=== PATIENT | male | born 1960 | race Caucasian/White ===

== ENCOUNTER 2016-06-01 10:38 | Outpatient (CLI) | payer OTHER ==
--- NOTE | 2016-06-01 11:07 | DIAGNOSTIC IMAGING REPORT ---
PROCEDURE: XR CHEST 2 VIEW INDICATION: Preop, cough. Initial encounter TECHNIQUE: PA and lateral view. COMPARISON: Chest x-ray 02/02/2013 FINDINGS: Stable mild left basilar scarring. Right lung is clear. Cardiovascular structures are normal. Bony thorax is unremarkable. No significant interval change. IMPRESSION: 1. No acute changes 2. Mild left basilar scarring
[2016-06-15] MEDS ORDERED: LISINOPRIL40 MG PO (12:59)
[2016-06-15] MEDS ORDERED: HYDROCHLOROTHIA25 MG PO (12:59)
[2016-06-15] MEDS ORDERED: CITALOPRAM HYDR40 MG PO (13:00)
[2016-06-15] MEDS ORDERED: CARVEDILOL12.5 MG PO (13:01)
[2016-06-15] MEDS ORDERED: AMLODIPINE BESY10 MG PO (13:02)
== END 2016-06-01 23:00 ==
LOC: RT SRH 10:38
DX: Z01.818 Encounter for other preprocedural examination (principal); Z01.810 Encounter for preprocedural cardiovascular examination; M19.011 Primary osteoarthritis, right shoulder

== ENCOUNTER 2016-06-20 14:42 | Outpatient (CLI) | payer OTHER ==
[~2016-06-20 14:42] MED LIST: AMLODIPINE BESY10 MG PO; CARVEDILOL12.5 MG PO; CITALOPRAM HYDR40 MG PO; HYDROCHLOROTHIA25 MG PO; LISINOPRIL40 MG PO
[2016-06-21] MEDS ORDERED: PERCOCET1 TA1 PO (11:20)
== END 2016-06-20 23:00 ==
LOC: LAB SRH 14:42
DX: M19.011 Primary osteoarthritis, right shoulder (principal)
CPT/HCPCS: 90001; 90004; 90074; 90100; 90155; 91004; 94060; 95059; 95150

== ENCOUNTER 2016-06-21 06:16 | Day surgery (SDC) | payer OTHER ==
--- NOTE | 2016-05-12 10:31 | HISTORY AND PHYSICAL ---
ADMITTED: 06/21/2016 CHIEF COMPLAINT: Right shoulder pain. HISTORY OF PRESENT ILLNESS: The patient has had pain and stiffness in the right shoulder, which has become worse over the last 5 years. He has actually had pain for many years, but it has become worse over the last 5 years. He has gotten only minimal relief with Advil and no relief at all with physical therapy. He has a CT and MRI, which show him to have at least a partial if not complete tear of the supraspinatus muscle insertion and complete loss of the glenohumeral joint space and also severe arthritis involving the acromioclavicular joint. He is being admitted for right shoulder hemiarthroplasty, rotator cuff repair and a distal clavicle resection. He also suffers from depression and hypertension. MEDICAL/SURGICAL HISTORY: Past history is positive in that he suffers from obesity as well. MEDICATIONS: 1. Currently are lisinopril 40 mg a day. 2. Hydrochlorothiazide 25 mg daily. 3. Citalopram 40 mg daily. 4. Carvedilol 12.5 daily. 5. Amlodipine 10 mg today. SOCIAL HISTORY: He is a former smoker, but has quit and is not smoking at present and drinks no alcohol. FAMILY HISTORY: He has a positive family history for hypertension in both his mother and his sister. PHYSICAL EXAMINATION: HEENT: His head is normocephalic and atraumatic. His eyes are clear. His hearing is grossly normal. CHEST: Symmetrical. HEART AND LUNG: Will do when he comes into the office. ABDOMEN: Obese. EXTREMITIES: For the shoulder exam, will refer you to my previous dictations but he does have pain with any shoulder motion and restriction of his range of motion. He has crepitation with motion. IMPRESSION: 1. Arthritis of the shoulder joint with at least partial if not full-thickness rotator cuff tear and acromioclavicular arthritis. PLAN: For him to have a hemiarthroplasty of the shoulder. I have had a long discussion with him about this, that he will likely not get complete relief of his pain with the surgery and there is a very significant risk that he will have some continued chronic pain despite the operation because of the damage to the glenoid, but he is still relatively young and wants to work hard and he is not really a candidate for glenoid replacement. The hemiarthroplasty hopefully will give him significant pain relief and be durable enough that he can work with his arm without significant restrictions. He understands this. I also explained where the incision would be, how the surgery would be done, the risk of failure, of dislocation, of continued pain, of infection, of weakness, and anesthesia complications have been explained to him and he understands the accepts and will plan to do the surgery then 05/31/2016 barring unforeseen complications or problem.
--- NOTE | 2016-06-01 10:23 | HISTORY AND PHYSICAL ---
ADMITTED: 06/21/2016 CHIEF COMPLAINT: 1. Right shoulder pain HISTORY OF PRESENT ILLNESS: The history is as noted in our clinic notes, which should be in the record there, but he has had increasing pain and decreasing movement in the right should over a prolonged period of time. He has had physical therapy. He has taken anti-inflammatories, had injections, none of which really relieved the pain. He does have a history of what sounds like a subluxation, maybe dislocation episode when he was 20 or 21 years old. He said he just grabbed onto something, felt his shoulder pop in and out, and says it all happened within about a second. Other than that, he has not had any instability of it. He does work hard and would like to continue to be able to use the arm pretty much without restriction. He has had a CT and MRI which showed him to have loss of the glenohumeral joint space. He has at least partial and maybe small full-thickness tear of the supraspinatus tendon, with a type 2-3 acromion, and he is being admitted for a right shoulder hemiarthroplasty, repair of the rotator cuff tear and acromioplasty. I had a long discussion with him on several occasions about this. It is not likely it is going to completely relieve his pain. There is just no satisfactory replacement or solution for someone whose glenoid is worn out, and I have explained this to him, that unfortunately I do not have a way to resolve the glenoid problem. The humeral head, though, looks to be worn out, from his studies, and we could replace that, probably give him some relief of his pain, and repair the rotator cuff and remove the acromial prominence that likely would help his pain as well. It is not expected that he is going to be completely normal, but hopefully would be much improved. I have also talked to him about the risks of infection, of dislocation, of problems with healing and stiffness and continued pain. He understands the surgery is not guaranteed, but would like to proceed. We are planning then for right shoulder hemiarthroplasty, rotator cuff repair and acromioplasty. We will do that until 06/21/2016, barring unforeseen complication or problem. MEDICAL/SURGICAL HISTORY: His past history is positive in that he suffers from hypertension and depression and obesity. He denies any other serious medical illness. MEDICATIONS: 1. Amlodipine 10 mg daily. 2. Carvedilol 12.5 mg twice daily. 3. Citalopram 40 mg a day. 4. Hydrochlorothiazide 50 mg daily. 5. Lisinopril 40 mg daily. ALLERGIES: 1. NO KNOWN ALLERGIES. SOCIAL HISTORY: He does have an ancient history of tobacco use as well, but he said he quit smoking cigarettes in 1984. FAMILY HISTORY: Positive for hypertension in both mother and sister. REVIEW OF SYSTEMS: Other than the shoulder pain and some back pain is negative. He denies any seizures or loss of consciousness, problems with balance, hearing or vision. He has not had any cough, congestion, fever, chills, chest pain, shortness of breath. No nausea, vomiting, diarrhea. No blood in his stools or urine. No dysuria. PHYSICAL EXAMINATION: HEENT: Head normocephalic and atraumatic. His eyes are clear. His hearing is grossly normal. There is no drainage from the ear canals. The face is symmetrical. NECK: Without jugular venous distention. CHEST: Symmetrical. HEART: Regular rate and rhythm, without murmurs. LUNGS: Clear to auscultation. ABDOMEN: Markedly obese. EXTREMITIES: Again, I will refer you to my clinic notes, but he does have decreased range of motion, and there is pain and crepitation with range of motion. LAB/IMAGING: His studies do show him to have the significant osteoarthritis of the shoulder, as noted above. PLAN: The plan will be for surgery as discussed in the history of present illness, and we will see him on 06/21/2016 for the surgery.
[~2016-06-21] VITALS: Ht 188 cm; Wt 150.8 kg
--- NOTE | 2016-06-21 11:12 | Operative Report ---
Operative Report Date of Surgery: 06-21-16 Preoperate Diagnosis: Arthritis right shoulder with impingement and partial RCT. Postoperative Diagnosis: Arthritis right shoulder Surgeon: Buddy Dunbar MD Procedure Performed: Right shoulder hemiarthroplasty Anesthesia: GA Indications: Right shoulder arthritis Surgical Technique: Right shoulder hemiarthroplasty
--- NOTE | 2016-06-21 11:15 | Postoperative Progress Note ---
Postop Progress Note Preoperate Diagnosis: Arthritis, partial RCT right shoulder Postoperative Diagnosis: Arthritis right shoulder Surgeon: Buddy Dunbar MD Anesthesia: General ETT Findings: Arthritis right shoulder Procedure: Right shoulder hemiarthroplasty Complications? No Condition: Stable EBL: 500 Blood Administered: 0 Specimen(s) removed? Yes Specimen removed/disposition: Right humeral head Grafts or Implants? Yes Graft/Implant type: Right shoulder hemiarthroplasty . (See nursing notes for details of grafts/implants)
[2016-06-21] MEDS ORDERED: PERCOCET1 TA1 PO (11:20)
--- NOTE | 2016-06-21 12:46 | Provider's Discharge Care Plan ---
Problem, Goal, Plan Problem List 1. Arthritis of right shoulder region
--- NOTE | 2016-06-21 12:46 | Provider's Discharge Care Plan ---
Problem, Goal, Plan Problem List 1. Arthritis of right shoulder region
--- NOTE | 2016-06-21 13:27 | DIAGNOSTIC IMAGING REPORT ---
PROCEDURE: XR SHOULDER 2 OR MORE VW-RIGHT INDICATION: Post op shoulder replacement. TECHNIQUE: Two views. COMPARISON: None. FINDINGS: Right humeral head arthroplasty with satisfactory positioning. Normal AC and glenohumeral joints. Soft tissues are unremarkable. IMPRESSION: 1. Right shoulder arthroplasty.
--- NOTE | 2016-06-21 14:16 | OPERATIVE REPORT ---
DATE OF SURGERY: 06/21/2016 SURGEON: WERO ALMODOVAR MD PREOPERATIVE DIAGNOSES: 1. Arthritis of the right shoulder 2. Partial versus complete rotator cuff tear 3. Impingement POSTOPERATIVE DIAGNOSIS: 1. Arthritis of the right shoulder PROCEDURE PERFORMED: 1. Operation proposed was a right shoulder hemiarthroplasty, possible repair of rotator cuff, acromioplasty; the operation performed was right shoulder hemiarthroplasty and biceps tenotomy ESTIMATED BLOOD LOSS: About 500 mL. COMPLICATIONS: None. PATHOLOGY SPECIMEN: Humeral head, which was badly eroded. SURGICAL TECHNIQUE: The patient was taken to the operating room, where he was given general anesthetic. He was placed slightly inclined, about 30-40 degree beach chair position on the operating table. The arm and shoulder and base of the neck were all prepped and draped in the usual sterile fashion. He had slightly oblique vertical incision was made directly anteriorly over the shoulder, carried down through subcutaneous tissue. The deltopectoral inner fold was defined and then bluntly dissected open. We went down to the lateral side of the clavipectoral fascia. I was able to palpate the axillary nerve and identify it and confirm the position of it. I then opened the capsule anteriorly in an L-shaped fashion, and went on layer to bluntly dissect around the subscapularis and free it, so that the tendon was completely free and we had excellent excursion of the muscle. The patient had a biceps tenotomy performed at the same time, and then I went around and removed as much of the osteophytes as I could, anteriorly and inferiorly, and resected the proximal humerus using a small oscillating saw in about 25-30 degrees of retroversion. We then removed some more of the osteophytes from around the margin and then reamed out the canal in a sequential fashion, starting a 7 and then working up to a 9, 11, 13, 15 and finally 17 mm size, which was the appropriate size. It was then broached, starting with a 13 broach and then with the 15 and finally with the 17 broach. We then got the actual components seated down in place. We got the [place] taper piece and the corresponding screws, secured it in place. Using the humeral head replicator plate, we then determined the appropriate position for that and secured it in place until the torque nub on the screw broke off, which was what we expected to happen and what is supposed to happen in the case that appropriate torque has been placed on it. Once that happened, then we got the trial heads, and the 47 x 18 head was the appropriate size. We seated that down in place, with the offset to provide the optimal amount of coverage. There was still a little bit of bone uncovered posteriorly, and we resected that bone and then checked the stability. With the 18 mm component, it was excellent, and we could internally rotate him at least 70 degrees with him abducted to 90. There was no superior or inferior laxity that was found. The anterior, posterior stability was excellent, and all appeared to be well. So we got that actual head, seated it on the taper. After confirming all was well, we repaired the subscapularis back to the proximal humerus using multiple #2 nonabsorbable braided sutures, and I had put 3 of those sutures through the bone of the proximal humerus and around the humeral stem, and we put the stem in place so that they were in place and we used those, using first some Israel Josafat grasping sutures and then oversewing with the same suture. We were able to obtain a nice, secure repair. Again, the patient was stable no matter what position we could put him in, and we could abduct him to 90 degrees. I could externally rotate him with his arm at his side to 45 degrees, all without any tendency to disrupt the repair at all. His arm was very stable. The patient had closure of the deltopectoral interval using #1 Polysorb running suture. The subcutaneous layer was closed with 2-0 Polysorb running suture and the subcuticular skin closure was performed with the same Polysorb suture, this time a 3-0 size. The patient was injected along the skin line with about 20 mL of 0.25% Marcaine, and some of that right at the skin, and where we made the incision some a bit deeper, down into the joint. Then he was dressed with Xeroform and ABD pads. These were taped securely in place. He was placed in an arm sling. He is being awakened. He will be taken to the recovery room. He is in stable condition. I did also, before I closed him, just rasped the underside of the anterior aspect of the acromion, but his rotator cuff actually was in surprisingly good condition and better than I would have expected from his MRI scan, without any significant defect that was seen, and the undersurface of the acromion was pretty much smooth, although it did have a little prominence anteriorly. Again, I did rasp that a little bit with a rasp, but it looked like his chief problem was the arthritic changes of the joint. He did have severe erosion and large osteophytes of the humeral head.
[2016-06-21 14:28] VITALS: BP 105/54
== END 2016-06-21 15:08 | disposition home or self-care (01) ==
LOC: OR SRH 06:16 → SCU SRH 06:17 → OR SRH 07:30
PROVIDERS: Orthopaedic Surgery
PROC: 0RRJ0J6 Replacement of Right Shoulder Joint with Synthetic Substitute, Humeral Surface, Open Approach (ICD-10-PCS; principal; 2016-06-21 07:30)
DX: M19.011 Primary osteoarthritis, right shoulder (principal); I10 Essential (primary) hypertension